=== PATIENT | female | born 2005 | race Caucasian/White ===

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

== ENCOUNTER 2023-09-19 14:19 | Emergency (ER) | payer OTHER, SELFPAY ==
[2023-09-19 14:40] VITALS: BP 113/64; PULSE 84; RESP 18; TEMP 36.6; O2SAT 96; BMI 36.1
[2023-09-19 15:12] LABS: UTC Influenza A Antigen Negative (Negative); UTC Influenza B Antigen Negative (Negative)
--- NOTE | 2023-09-19 15:12 | PC.NURSE ---
Spoke with pt and stated never have had intercourse so not way .
--- NOTE | 2023-09-19 15:22 | ED_ITS ---
Discharge Plan Disposition Patient Disposition: Home, Self-Care Condition: Good Prescriptions Prescriptions: New ondansetron 4 mg Tablet,Disintegrating 4 mg PO Q8H PRN (Reason: Nausea) Qty: 12 0RF No Action cholecalciferol (vitamin D3) 25 mcg (1,000 unit) tablet PO omeprazole 10 mg capsule,delayed release(DR/EC) 10 mg PO DAILY norgestimate-ethinyl estradiol [Sprintec (28)] 0.25-35 mg-mcg tablet 1 tab PO DAILY Qty: 84 3RF buspirone 5 mg tablet 5 mg PO BID Qty: 60 2RF risperidone 1 mg tablet 1 mg PO HS Qty: 30 1RF sertraline 100 mg tablet 200 mg PO DAILY Qty: 60 1RF fluticasone propionate 120 SPR/BOT bottle 1 spr intranasal DAILY Qty: 1 0RF Rx Instructions: one spray in each nostril daily montelukast 5 MG tablet,chewable 5 mg PO DAILY cetirizine 10 MG capsule 10 mg PO DAILY Referrals Follow up/Referrals: Kathryn Dimas DO [Primary Care Provider] - See instructions Activity Restrictions/Add. Instructions Additional Instructions/Restrictions: Drink plenty of fluids. Take tylenol or ibuprofen for pain or fever. Take the medications as directed. Follow up with your regular doctor. GO TO THE ER FOR ANY WORSENING SYMPTOMS Clinical Impressions Clinical Impression: Gastroenteritis Stand Alone Forms Stand Alone Forms: Work/School Release Instructions Patient Instructions: Viral Gastroenteritis, DI for Viral Gastroenteritis -- Adult, Ondansetron Discharge ED Provider: Hernan Arzola [facility] [place] General Stated complaint: nausea vomiting Mode of Arrival: Ambulatory Source of Information: Patient Limitations: No Limitations Time Seen by Provider: 09/19/23 15:22 Description of Symptoms (Recalled from Triage Doc. by RN): Pt vomitted last night. HEENT Symptoms (Recalled from RN notes): Yes Resp Symptoms (Recalled from RN notes): No Skin Symptoms (Recalled from RN notes): No MS Symptoms (Recalled from RN notes): No Functional Status (Recalled from RN notes): n/a History of Present Illness Provider Complaint: She states that for the past 1 day she has had n/v/d. She denies abdominal pain. Related Data Home Medications Medication Instructions Recorded Confirmed cetirizine 10 mg capsule 10 mg PO DAILY ALLERGIES 08/10/17 09/19/23 montelukast 5 mg chewable tablet 5 mg PO DAILY ALLERGIES 08/10/17 09/19/23 cholecalciferol (vitamin D3) 25 PO 02/27/20 08/12/23 mcg (1,000 unit) tablet omeprazole 10 mg capsule,delayed 10 mg PO DAILY 04/22/21 09/19/23 release Previous Rx's Medication Instructions Recorded norgestimate 0.25 mg-ethinyl 1 tab PO DAILY #84 tabs 04/22/21 estradiol 35 mcg tablet (Sprintec (28)) fluticasone propionate 50 1 spr intranasal DAILY #1 ea 08/22/21 mcg/actuation nasal spray,suspension buspirone 5 mg tablet 5 mg PO BID #60 tabs 08/12/23 risperidone 1 mg tablet 1 mg PO HS #30 tabs 08/12/23 sertraline 100 mg tablet 200 mg (2 x 100 mg) PO DAILY #60 08/12/23 tabs ondansetron 4 mg disintegrating 4 mg PO Q8H PRN Nausea #12 tabs 09/19/23 tablet Allergies Allergy/AdvReac Type Severity Reaction Status Date / Time Penicillins [PENICILLINS] Allergy Unknown Verified 09/19/23 15:05 Worker's Comp Is this a Worker's Comp case?: No [facility] Disclaimer: The information contained in this section may have been updated after the patient was seen, as this information can be updated by other users. 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 (Updated 09/19/23 @ 15:36 by Hernan Arzola APRN) Mood disorder Generalized anxiety disorder Autism spectrum disorder No significant past medical history Family History Other No significant family history Social History Smoking Status: Never smoker second hand exposure: No alcohol intake: never counseling given: No substance use type: denies use counseling given: No current occupational status: employed and student Travel in the last 8 weeks: None adopted: No caregiver/support person: No foster care: No household members: family housing: house lives independently: No marital status: single number of children: 0 number of grandchildren: 0 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; 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 Hx Recent Travel: No sexually active: No caffeine: No physical activity: none octavia/catholic: Caodaism special octavia needs: No working smoke detector in home: Yes fire extinguisher in home: Yes carbon monox detector in home: Yes firearms in home: No do you feel safe at home: Yes victim of physical abuse: No victim of emotional abuse: No victim of sexual abuse: No would you like helpful sources: No ROS Obtained: Yes All systems reviewed & no additional complaints except as documented Constitutional Constitutional: Denies chills, Denies fever(s) and Reports poor appetite ENT Ears, Nose, Mouth, and Throat: Denies dizziness and Denies sore throat Cardiovascular Cardiovascular: Denies dyspnea Respiratory Respiratory: Denies chest congestion, Denies cough and Denies dyspnea Gastrointestinal Gastrointestingal: Reports as per HPI, cramping, diarrhea, nausea and vomiting; Denies abdominal pain Genitourinary Female Genitourinary: Denies difficulty voiding, Denies dysuria, Denies hematuria, Denies urinary frequency, Denies urinary incontinence, Denies urinary hesitancy and Denies urinary urgency Musculoskeletal Musculoskeletal: Denies arthralgias Integumentary/Breasts Skin/Breast: Denies rash Neurologic Neurologic: Denies dizziness Physical Exam General General appearance: alert and in no apparent distress Head Head exam: atraumatic and normocephalic Eye Eye exam: Present normal appearance, PERRL and EOMI ENT ENT exam: Present normal exam, normal oropharynx, mucous membranes moist, TM's normal bilaterally and normal external ear exam Neck Neck exam: Present normal inspection, full ROM and trachea midline; Absent tenderness, meningismus or lymphadenopathy Chest Chest inspection: Present normal inspection and symmetric chest wall rise; Absent tenderness, rash or abscess Respiratory Respiratory exam: Present normal lung sounds bilaterally; Absent respiratory distress, wheezes or stridor Cardiovascular Cardiovascular exam: Present regular rate and normal rhythm; Absent irregular rhythm, systolic murmur, diastolic murmur or JVD Abdominal Exam Abdominal exam: Present soft and hyperactive bowel sounds; Absent distention, tenderness, guarding, rebound, rigidity, psoas sign, obturator sign, heel tap sign, Resendiz's sign, Rovsing's sign or tenderness at McBurney's Point Extremities Exam Extremities exam: Present normal inspection and full ROM; Absent tenderness Back Exam Back exam: Present normal inspection and full ROM; Absent tenderness, CVA tenderness (R) or CVA tenderness (L) Neurological Exam Neurological exam: Present alert, oriented X3 and CN II-XII intact Psychiatric Psychiatric exam: Present normal affect and normal mood Skin Skin exam: Present warm, dry, intact and normal color Lymphatic Lymphatic Findings: no adenopathy Medical Decision Making Medical Records Medical records reviewed: No I reviewed the patient's medical records. Teddy Inquiry Pt receiving controlled substance: No Vital Signs: 09/19/23 14:40 Temperature 97.8 F Temperature Source Oral Pulse Rate [Right Radial] 84 Respiratory Rate 18 Blood Pressure [Right Arm] 113/64 Blood Pressure Mean [Right Arm] 80 Blood Pressure Source [Right Arm] Automatic Cuff Blood Pressure Position [Right Arm] Sitting 02 Sat by Pulse Oximetry 96 Oxygen Delivery Method Room Air Lab Data Lab Results 09/19/23 14:54: Influenza Type A Ag Negative, Influenza Type B Ag Negative
[2023-09-19 15:52] VITALS: BP 113/64; PULSE 84; RESP 18; TEMP 36.6; O2SAT 96
== END 2023-09-19 15:52 | disposition home or self-care (01) ==
PROVIDERS: Emergency Provider Nurse Practitioner Family; PCP Pediatrics
DX: K52.9 Noninfective gastroenteritis and colitis, unspecified (principal); R11.2 Nausea with vomiting, unspecified
CPT/HCPCS: 87804; 99212; 99214; G0463

== ENCOUNTER 2023-11-29 15:14 | Emergency (ER) | payer OTHER, SELFPAY ==
--- NOTE | 2023-11-29 15:44 | ED_ITS ---
Discharge Plan Disposition Patient Disposition: Home, Self-Care Condition: Good Prescriptions Prescriptions: No Action omeprazole 10 mg capsule,delayed release(DR/EC) 10 mg PO DAILY buspirone 5 mg tablet 5 mg PO BID Qty: 60 2RF risperidone 1 mg tablet 1 mg PO HS Qty: 30 1RF montelukast 5 MG tablet,chewable 5 mg PO DAILY Referrals Follow up/Referrals: Kathryn Dimas DO [Primary Care Provider] - See instructions Clinical Impressions Clinical Impression: Gastroenteritis Stand Alone Forms Stand Alone Forms: Work/School Release Instructions Patient Instructions: DI for Viral Gastroenteritis -- Adult Discharge ED Provider: Mary Lai [facility] [place] HPI General Stated complaint: Nausea Time Seen by Provider: 11/29/23 15:43 History of Present Illness Provider Complaint: Pt reports that she went to the fair on Wednesday and ended up with Nausea and Diarrhea on Wednesday. She reports that she is much better and the symptoms have passed, but needs to have a note for work. Related Data Home Medications Medication Instructions Recorded Confirmed montelukast 5 mg chewable tablet 5 mg PO DAILY ALLERGIES 08/10/17 11/29/23 omeprazole 10 mg capsule,delayed 10 mg PO DAILY 04/22/21 11/29/23 release Previous Rx's Medication Instructions Recorded buspirone 5 mg tablet 5 mg PO BID #60 tabs 09/23/23 risperidone 1 mg tablet 1 mg PO HS #30 tabs 09/23/23 Allergies Allergy/AdvReac Type Severity Reaction Status Date / Time Penicillins [PENICILLINS] Allergy Unknown Verified 09/19/23 15:05 [facility] Disclaimer: The information contained in this section may have been updated after the patient was seen, as this information can be updated by other users. 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 (Updated 11/29/23 @ 16:11 by Mary Lai APRN) Mood disorder Generalized anxiety disorder Autism spectrum disorder No significant past medical history Family History Other No significant family history Social History Smoking Status: Never smoker second hand exposure: No alcohol intake: never counseling given: No substance use type: denies use counseling given: No current occupational status: employed and student Travel in the last 8 weeks: None adopted: No caregiver/support person: No foster care: No household members: family housing: house lives independently: No marital status: single number of children: 0 number of grandchildren: 0 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; 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 Hx Recent Travel: No sexually active: No caffeine: No physical activity: none octavia/orthodoxy: Restorationist special octavia needs: No working smoke detector in home: Yes fire extinguisher in home: Yes carbon monox detector in home: Yes firearms in home: No do you feel safe at home: Yes victim of physical abuse: No victim of emotional abuse: No victim of sexual abuse: No would you like helpful sources: No ROS Obtained: Yes All systems reviewed & no additional complaints except as documented Constitutional Constitutional: Reports system reviewed and no additional complaints, except as documented Eyes Eyes: Reports system reviewed and no additional complaints, except as documented ENT Ears, Nose, Mouth, and Throat: Reports system reviewed and no additional complaints, except as documented Cardiovascular Cardiovascular: Reports system reviewed and no additional complaints, except as documented Respiratory Respiratory: Reports system reviewed and no additional complaints, except as documented Gastrointestinal Gastrointestingal: Reports system reviewed and no additional complaints, except as documented, diarrhea and nausea Genitourinary Female Genitourinary: Reports system reviewed and no additional complaints, except as documented Musculoskeletal Musculoskeletal: Reports system reviewed and no additional complaints, except as documented Integumentary/Breasts Skin/Breast: Reports system reviewed and no additional complaints, except as documented Neurologic Neurologic: Reports system reviewed and no additional complaints, except as documented Endocrine Endocrine: Reports system reviewed and no additional complaints, except as documented Hematologic/Lymphatic Henatologic/Lymphatic: Reports system reviewed and no additional complaints, except as documented Allergic/Immunologic Allergic/Immunologic: Reports system reviewed and no additional complaints, except as documented Physical Exam General General appearance: alert and in no apparent distress Head Head exam: atraumatic and normocephalic Eye Eye exam: Present normal appearance ENT ENT exam: Present normal exam and normal oropharynx Neck Neck exam: Present normal inspection Chest Chest inspection: Present normal inspection and symmetric chest wall rise Respiratory Respiratory exam: Present normal lung sounds bilaterally Cardiovascular Cardiovascular exam: Present regular rate, normal rhythm and normal heart sounds Abdominal Exam Abdominal exam: Present soft and normal bowel sounds Extremities Exam Extremities exam: Present normal inspection Back Exam Back exam: Present normal inspection Neurological Exam Neurological exam: Present alert and oriented X3 Psychiatric Psychiatric exam: Present normal affect and normal mood Skin Skin exam: Present warm, dry and intact Lymphatic Lymphatic Findings: no adenopathy Medical Decision Making Teddy Inquiry Pt receiving controlled substance: No Teddy was queried for this patient: No
[2023-11-29 15:45] VITALS: BP 116/64; PULSE 82; RESP 19; TEMP 37.3; O2SAT 98; BMI 36.1
[2023-11-29 16:03] VITALS: BP 116/64; PULSE 82; RESP 19; TEMP 37.3; O2SAT 98
== END 2023-11-29 16:14 | disposition home or self-care (01) ==
PROVIDERS: Emergency Provider Nurse Practitioner Family; PCP Pediatrics
DX: K52.9 Noninfective gastroenteritis and colitis, unspecified (principal); R11.0 Nausea
CPT/HCPCS: 99212; G0463

== ENCOUNTER 2023-12-16 10:36 | Emergency (ER) | payer OTHER, SELFPAY ==
[2023-12-16 10:50] VITALS: BP 120/75; PULSE 97; RESP 18; TEMP 37.3; O2SAT 98; BMI 35.9
--- NOTE | 2023-12-16 10:56 | ED_ITS ---
Discharge Plan Disposition Patient Disposition: Home, Self-Care Condition: Good Prescriptions Prescriptions: New sulfamethoxazole-trimethoprim [Bactrim DS] 800-160 mg tablet 1 tab PO Q12H Qty: 20 0RF No Action omeprazole 10 mg capsule,delayed release(DR/EC) 10 mg PO DAILY buspirone 5 mg tablet 5 mg PO BID Qty: 60 2RF risperidone 1 mg tablet 1 mg PO HS Qty: 30 1RF sertraline 100 mg tablet 100 mg PO DAILY montelukast 5 MG tablet,chewable 5 mg PO DAILY Referrals Follow up/Referrals: aKthryn Dimas DO [Primary Care Provider] - See instructions Activity Restrictions/Add. Instructions Additional Instructions/Restrictions: antibiotics as ordered if worsen or no improvement return follow up with pcp tomorrow Clinical Impressions Clinical Impression: Abscess Instructions Patient Instructions: DI for Skin Abscess Discharge ED Provider: Jaye ([facility])[place] [facility] HPI General Stated complaint: vaginal pain Mode of Arrival: Ambulatory Source of Information: Patient Limitations: No Limitations Time Seen by Provider: 12/16/23 10:57 Description of Symptoms (Recalled from Triage Doc. by RN): Pt's symptoms are she has a cyst on her under side . She states that its painful to sit down. HEENT Symptoms (Recalled from RN notes): No Resp Symptoms (Recalled from RN notes): No Skin Symptoms (Recalled from RN notes): Yes MS Symptoms (Recalled from RN notes): No Functional Status (Recalled from RN notes): n/a History of Present Illness Provider Complaint: 18 yr old female presents for c/o abscess on labia and painful with sitting down. Related Data Home Medications Medication Instructions Recorded Confirmed montelukast 5 mg chewable tablet 5 mg PO DAILY ALLERGIES 08/10/17 12/16/23 omeprazole 10 mg capsule,delayed 10 mg PO DAILY 04/22/21 12/16/23 release sertraline 100 mg tablet 100 mg PO DAILY 12/16/23 12/16/23 Previous Rx's Medication Instructions Recorded buspirone 5 mg tablet 5 mg PO BID #60 tabs 09/23/23 risperidone 1 mg tablet 1 mg PO HS #30 tabs 09/23/23 sulfamethoxazole 800 1 tab PO Q12H #20 tabs 12/16/23 mg-trimethoprim 160 mg tablet (Bactrim DS) Allergies Allergy/AdvReac Type Severity Reaction Status Date / Time Penicillins [PENICILLINS] Allergy Unknown Verified 12/16/23 10:53 Worker's Comp Is this a Worker's Comp case?: No [facility] Disclaimer: The information contained in this section may have been updated after the patient was seen, as this information can be updated by other users. 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) Mood disorder Generalized anxiety disorder Autism spectrum disorder No significant past medical history Family History , HUM[employer] DEPARTMENT SUPERVISOR) No significant family history Social History Smoking Status: Never smoker second hand exposure: No alcohol intake: never counseling given: No substance use type: denies use counseling given: No current occupational status: employed and student Travel in the last 8 weeks: None adopted: No caregiver/support person: No foster care: No household members: family housing: house lives independently: No marital status: single number of children: 0 number of grandchildren: 0 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; 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 Hx Recent Travel: No sexually active: No caffeine: No physical activity: none octavia/presybeterian: Presybeterian special octavia needs: No working smoke detector in home: Yes fire extinguisher in home: Yes carbon monox detector in home: Yes firearms in home: No do you feel safe at home: Yes victim of physical abuse: No victim of emotional abuse: No victim of sexual abuse: No would you like helpful sources: No ROS Obtained: Yes All systems reviewed & no additional complaints except as documented Constitutional Constitutional: Reports system reviewed and no additional complaints, except as documented Eyes Eyes: Reports system reviewed and no additional complaints, except as documented ENT Ears, Nose, Mouth, and Throat: Reports system reviewed and no additional complaints, except as documented Cardiovascular Cardiovascular: Reports system reviewed and no additional complaints, except as documented Respiratory Respiratory: Reports system reviewed and no additional complaints, except as documented Musculoskeletal Musculoskeletal: Reports system reviewed and no additional complaints, except as documented Integumentary/Breasts Skin/Breast: Reports system reviewed and no additional complaints, except as documented, Reports as per HPI, Reports furuncle and Reports wounds Neurologic Neurologic: Reports system reviewed and no additional complaints, except as documented Endocrine Endocrine: Reports system reviewed and no additional complaints, except as documented Hematologic/Lymphatic Henatologic/Lymphatic: Reports system reviewed and no additional complaints, except as documented Allergic/Immunologic Allergic/Immunologic: Reports system reviewed and no additional complaints, except as documented Physical Exam General General appearance: alert and in no apparent distress Eye Eye exam: Present normal appearance ENT ENT exam: Present normal exam Respiratory Respiratory exam: Present normal lung sounds bilaterally Cardiovascular Cardiovascular exam: Present regular rate and normal rhythm Abdominal Exam Abdominal exam: Present soft and normal bowel sounds Expanded Exam Female Image: 2 1. quarter size abscess, induration, drainage present Neurological Exam Neurological exam: Present alert and oriented X3 Skin Skin exam: Present other Medical Decision Making Medical Records Medical records reviewed: Yes I reviewed the patient's medical records. Teddy Inquiry Pt receiving controlled substance: No Teddy was queried for this patient: No Vital Signs: 12/16/23 10:50 Temperature 99.2 F Temperature Source Oral Pulse Rate [Right Radial] 97 H Respiratory Rate 18 Blood Pressure [Right Arm] 120/75 Blood Pressure Mean [Right Arm] 90 Blood Pressure Source [Right Arm] Automatic Cuff Blood Pressure Position [Right Arm] Sitting 02 Sat by Pulse Oximetry 98 Oxygen Delivery Method Room Air
[2023-12-16 11:08] VITALS: BP 146/82; PULSE 92; RESP 18; TEMP 37.5; O2SAT 98
== END 2023-12-16 11:08 | disposition home or self-care (01) ==
PROVIDERS: Emergency Provider Nurse Practitioner Family; PCP Pediatrics
DX: N76.4 Abscess of vulva (principal)
CPT/HCPCS: 99212; 99214; G0463

== ENCOUNTER 2024-03-28 16:13 | Emergency (ER) | payer OTHER, SELFPAY ==
[2024-03-28 16:50] VITALS: BP 110/73; PULSE 90; RESP 20; TEMP 36.6; O2SAT 97; BMI 35.2
--- NOTE | 2024-03-28 17:04 | EXP.UTC ---
Discharge Plan Disposition Patient Disposition: Home, Self-Care Condition: Good Prescriptions Prescriptions: New ibuprofen [IBU] 400 mg tablet 400 mg PO Q6HP PRN (Reason: Moderate Pain) Qty: 30 0RF No Action buspirone 5 mg tablet 5 mg PO DAILY sertraline 100 mg tablet 100 mg PO DAILY risperidone 1 mg tablet 1 mg PO DAILY Referrals Follow up/Referrals: Kathryn Dimas DO [Primary Care Provider] - See instructions Clayton Julian MD [Staff Physician] - See instructions Activity Restrictions/Add. Instructions Additional Instructions/Restrictions: Drink plenty of fluids. Take tylenol or ibuprofen for pain. I sent in a prescription for ibuprofen. Follow up with your regular doctor. Follow up with Dr. Julian. GO TO THE ER FOR ANY WORSENING SYMPTOMS Clinical Impressions Clinical Impression: Dysmenorrhea Instructions Patient Instructions: DI for Dysmenorrhea, Ibuprofen Print Language Print Language: French Discharge ED Provider: Hernan Arzola [facility] General Stated complaint: Periods problems Mode of Arrival: Ambulatory Source of Information: Patient Limitations: No Limitations Time Seen by Provider: 03/28/24 17:04 Description of Symptoms (Recalled from Triage Doc. by RN): PATIENT STATES SHE HAS BEEN HAVING BIG CLOTS WITH HER PERIOD SINCE WEDNESDAY AND STATES IT HAS BEEN WORSE OVER THE PAST 2 DAYS HEENT Symptoms (Recalled from RN notes): No Resp Symptoms (Recalled from RN notes): No Skin Symptoms (Recalled from RN notes): No MS Symptoms (Recalled from RN notes): No Functional Status (Recalled from RN notes): WNL History of Present Illness Provider Complaint: She states that for the past 2 days she has been having a very heavy period. She is passing clots also. Related Data Home Medications ?Medication ?Instructions ?Recorded ?Confirmed buspirone 5 mg tablet 5 mg PO DAILY 03/28/24 03/28/24 risperidone 1 mg tablet 1 mg PO DAILY 03/28/24 03/28/24 sertraline 100 mg tablet 100 mg PO DAILY 03/28/24 03/28/24 Previous Rx's ?Medication ?Instructions ?Recorded ibuprofen 400 mg tablet (IBU) 400 mg PO Q6HP PRN Moderate Pain 03/28/24 #30 tabs Allergies Allergy/AdvReac Type Severity Reaction Status Date / Time Penicillins [PENICILLINS] Allergy Unknown Verified 03/10/24 10:37 Worker's Comp Is this a Worker's Comp case?: No [facility] Disclaimer: The information contained in this section may have been updated after the patient was seen, as this information can be updated by other users. 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) Mood disorder Generalized anxiety disorder Autism spectrum disorder No significant past medical history Family History , PAVING RAMMER) No significant family history Social History Smoking Status: Never smoker second hand exposure: No alcohol intake: never counseling given: No substance use type: denies use counseling given: No current occupational status: employed and student Travel in the last 8 weeks: None adopted: No caregiver/support person: No foster care: No household members: family housing: house lives independently: No marital status: single number of children: 0 number of grandchildren: 0 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; 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 Hx Recent Travel: No sexually active: No caffeine: No physical activity: none octavia/restoration: Voodoo special octavia needs: No working smoke detector in home: Yes fire extinguisher in home: Yes carbon monox detector in home: Yes firearms in home: No do you feel safe at home: Yes victim of physical abuse: No victim of emotional abuse: No victim of sexual abuse: No would you like helpful sources: No ROS Obtained: Yes All systems reviewed & no additional complaints except as documented Constitutional Constitutional: Denies chills and Denies fever(s) Eyes Eyes: Denies eye discharge ENT Ears, Nose, Mouth, and Throat: Denies dizziness, Denies otalgia and Denies sore throat Cardiovascular Cardiovascular: Denies chest pain Respiratory Respiratory: Denies shortness of breath, Denies chest congestion, Denies cough, Denies stridor and Denies wheezing Gastrointestinal Gastrointestingal: Reports cramping; Denies abdominal pain, nausea or vomiting Genitourinary Female Genitourinary: Reports as per HPI, Denies dysuria, Denies urinary frequency, Denies urinary incontinence, Denies urinary hesitancy and Denies urinary urgency Musculoskeletal Musculoskeletal: Reports system reviewed and no additional complaints, except as documented and Denies arthralgias Integumentary/Breasts Skin/Breast: Denies rash Neurologic Neurologic: Denies dizziness and Denies paresthesias Allergic/Immunologic Allergic/Immunologic: Denies wheezing Physical Exam General General appearance: alert and in no apparent distress Head Head exam: atraumatic, normocephalic and normal inspection Eye Eye exam: Present normal appearance, PERRL and EOMI ENT ENT exam: Present normal exam, normal oropharynx, mucous membranes moist, TM's normal bilaterally and normal external ear exam Neck Neck exam: Present normal inspection, full ROM and trachea midline; Absent meningismus or lymphadenopathy Chest Chest inspection: Present normal inspection and symmetric chest wall rise; Absent tenderness Respiratory Respiratory exam: Present normal lung sounds bilaterally; Absent respiratory distress Cardiovascular Cardiovascular exam: Present regular rate and normal rhythm; Absent JVD Abdominal Exam Abdominal exam: Present soft and normal bowel sounds; Absent distention, tenderness or guarding Extremities Exam Extremities exam: Present normal inspection, full ROM and normal capillary refill; Absent calf tenderness Back Exam Back exam: Present normal inspection; Absent tenderness Neurological Exam Neurological exam: Present alert and oriented X3 Psychiatric Psychiatric exam: Present normal affect and normal mood Skin Skin exam: Present warm, dry, intact and normal color Lymphatic Lymphatic Findings: no adenopathy Medical Decision Making Medical Records Medical records reviewed: No I reviewed the patient's medical records. Screening: Per USPSTF and CDC recommendations, given the prevalence of disease in our region, it is our hospital?s policy to screen for HIV and viral Hepatitis for all patients aged 18 and over and those with ongoing risk factors. Teddy Inquiry Pt receiving controlled substance: No Vital Signs: 03/28/24 16:50 Temperature 97.9 F Temperature Source Oral Pulse Rate [Left Brachial] 90 Respiratory Rate 20 Blood Pressure [Left Arm] 110/73 Blood Pressure Mean [Left Arm] 85 Blood Pressure Source [Left Arm] Automatic Cuff Blood Pressure Position [Left Arm] Sitting 02 Sat by Pulse Oximetry 97 Oxygen Delivery Method Room Air
[2024-03-28 17:20] VITALS: BP 110/73; PULSE 90; RESP 20; TEMP 36.6; O2SAT 97
== END 2024-03-28 17:23 | disposition home or self-care (01) ==
PROVIDERS: Emergency Provider Nurse Practitioner Family; PCP Pediatrics
DX: N94.6 Dysmenorrhea, unspecified (principal)
CPT/HCPCS: 99213; G0381